=== PATIENT | female | born 2000 | race Two or more races ===

== ENCOUNTER 2023-06-03 10:35 | Emergency (ER) | payer MEDICAID, OTHER ==
[~2023-06-03] VITALS: Ht 167.6 cm; Wt 84.0 kg
[2023-06-03 10:37] VITALS: O2SAT 97
[2023-06-03 11:24] LABS: BASOPHILS % 0.7 % (0.0-2.0); EOSINOPHILS % 1.1 % (0.0-5.0); HEMATOCRIT. 36.8 % (36.0-48.0); HEMOGLOBIN. 12.4 g/dL (12.0-16.0); LYMPHOCYTES % 32.2 % (20.0-50.0); MEAN CORPUSCULAR HEMOGLOBIN 30.8 pg (28.0-32.0); MEAN CORPUSCULAR HGB CONC 33.6 g/dL (31.0-37.0); MEAN CORPUSCULAR VOLUME 91.5 fL (81.0-99.0); MONOCYTES % 5.5 % (2.0-8.0); NEUTROPHILS % 60.5 % (40.0-76.0); PLATELET 274 x1000/uL (130-400); RED BLOOD CELL COUNT 4.02 mill/uL (4.2-5.4); RED CELL DISTRIBUTION WIDTH 13.1 % (11.6-14.6); WHITE BLOOD COUNT 7.8 x1000/uL (4.5-11.0)
[2023-06-03 11:51] LABS: CLARITY URINE CLOUDY (CLEAR); COLOR URINE YELLOW (YELLOW); GLUCOSE URINE NEGATIVE (NEGATIVE); KETONES URINE TRACE (NEGATIVE); LEUKOCYTE ESTERASE URINE 1+ (NEGATIVE); NITRITE URINE NEGATIVE (NEGATIVE); OCCULT BLOOD URINE 3+ (NEGATIVE); PH URINE 7.5 (4.5-8.0); PROTEIN URINE 1+ (NEGATIVE); SPECIFIC GRAVITY URINE 1.028 (1.005-1.030)
[2023-06-03 11:55] LABS: ALANINE AMINOTRANSFERASE < 7 IU/L (10-49); ALBUMIN 4.2 g/dL (3.2-4.8); ASPARTATE AMINOTRANSFERASE 14 IU/L (<34); B-HCG QUANTITATIVE 36673 mIU/mL (<3); BILIRUBIN TOTAL 0.7 mg/dL (0.1-1.0); CALCIUM 8.9 mg/dL (8.7-10.4); CARBON DIOXIDE 26 mEq/L (21-32); CHLORIDE 106 mEq/L (98-107); CREATININE 0.6 mg/dL (0.6-1.0); GLUCOSE 90 mg/dL (70-105); POTASSIUM 4.4 mEq/L (3.5-5.1); PROTEIN TOTAL 6.8 g/dL (6.0-8.3); SODIUM 138 mEq/L (136-145); UREA NITROGEN BLOOD 6 mg/dL (9-23)
[2023-06-03 12:15] LABS: MUCUS URINE 3+ /lpf (< = 2+); SQUAMOUS EPITHELIAL CELL URINE 3+ /lpf (RARE/1+)
[2023-06-03 12:16] LABS: BACTERIA URINE 3+
[2023-06-03] MEDS ORDERED: CEPH500C2 MT (13:19)
[2023-06-03] MEDS ORDERED: PNV1TABL76 MT (13:57)
[2023-06-03 14:18] VITALS: BP 122/74; PULSE 66; RESP 19; TEMP 98.3
[2023-06-04] MEDS ORDERED: IBUP-2030 MT (12:59)
== END 2023-06-03 14:18 | disposition home or self-care (01) ==
LOC: ER 10:35
DX: O23.41 Unspecified infection of urinary tract in pregnancy, first trimester (principal); N39.0 Urinary tract infection, site not specified; Z3A.01 Less than 8 weeks gestation of pregnancy
CPT/HCPCS: 36415; 76801; 80053; 81003; 81025; 84702; 85025; 86850; 86900; 99284

== ENCOUNTER 2023-06-03 23:35 | Inpatient (IN) | payer MEDICAID, OTHER ==
[~2023-06-03] VITALS: Ht 170.2 cm; Wt 98.9 kg
[~2023-06-03 23:35] MED LIST: CEPH500C2 MT; PNV1TABL76 MT
[2023-06-04] MEDS ORDERED: ACETAMINOPHEN 325MG TABLET PO PRN
[2023-06-04 00:30] LABS: BASOPHILS % 0.2 % (0.0-2.0); EOSINOPHILS % 0.2 % (0.0-5.0); HEMOGLOBIN. 11.9 g/dL (12.0-16.0); MEAN CORPUSCULAR HEMOGLOBIN 30.7 pg (28.0-32.0); MEAN CORPUSCULAR HGB CONC 33.1 g/dL (31.0-37.0); MEAN CORPUSCULAR VOLUME 92.5 fL (81.0-99.0); MONOCYTES % 3.5 % (2.0-8.0); NEUTROPHILS % 81.1 % (40.0-76.0); PLATELET 285 x1000/uL (130-400); RED BLOOD CELL COUNT 3.89 mill/uL (4.2-5.4); RED CELL DISTRIBUTION WIDTH 12.9 % (11.6-14.6); WHITE BLOOD COUNT 14.8 x1000/uL (4.5-11.0)
[2023-06-04 00:54] LABS: ALANINE AMINOTRANSFERASE 7 IU/L (10-49); ALBUMIN 4.1 g/dL (3.2-4.8); ASPARTATE AMINOTRANSFERASE 15 IU/L (<34); B-HCG QUANTITATIVE 25997 mIU/mL (<3); BILIRUBIN TOTAL 0.5 mg/dL (0.1-1.0); CALCIUM 8.7 mg/dL (8.7-10.4); CARBON DIOXIDE 22 mEq/L (21-32); CHLORIDE 106 mEq/L (98-107); CREATININE 0.7 mg/dL (0.6-1.0); GLUCOSE 93 mg/dL (70-105); POTASSIUM 4.1 mEq/L (3.5-5.1); PROTEIN TOTAL 6.8 g/dL (6.0-8.3); SODIUM 137 mEq/L (136-145); UREA NITROGEN BLOOD 7 mg/dL (9-23)
[2023-06-04] MEDS: OXYTOCIN IV NR (05:30)
[2023-06-04] MEDS: SODIUM CHLORIDE 0.9% IV NR (05:30)
[2023-06-04 08:00] VITALS: BP 117/74; PULSE 66; RESP 19; TEMP 97.9
[2023-06-04] MEDS ORDERED: DEXT 5%/LR + PITOCIN 20UNITS/L 1,000 ML IV SCH (09:45)
[2023-06-04] MEDS ORDERED: OXYTOCIN 30 UNITS/500ML NS PMX 500 ML IV NR (10:30)
[2023-06-04] MEDS ORDERED: SODIUM CHLORIDE 0.9% IV NR (11:00)
[2023-06-04] MEDS ORDERED: OXYTOCIN IV NR (11:00)
[2023-06-04 12:00] VITALS: BP 107/73; PULSE 60; RESP 18; TEMP 97.9
[2023-06-04] MEDS ORDERED: PROPOFOL 200MG/20ML VIAL IV ONE (12:22)
[2023-06-04] MEDS ORDERED: MIDAZOLAM HCL 2 MG/2 ML VIAL ONE ×2 (12:24→12:54)
[2023-06-04] MEDS ORDERED: IBUP-2030 MT (12:59)
[2023-06-04] MEDS ORDERED: ONDANSETRON HCL 4MG/2ML INJ ONE (13:08)
[2023-06-04] MEDS ORDERED: OXYTOCIN 10 UNITS/ML 1ML ONE (13:08)
[2023-06-04] MEDS ORDERED: HYDROMORPHONE HCL/PF 2MG/ML CPJ IV PRN (13:15)
[2023-06-04] MEDS ORDERED: ONDANSETRON HCL 4MG/2ML INJ IV PRN (13:15)
[2023-06-04] MEDS ORDERED: MEPERIDINE HCL/PF 25MG/ML CPJ IV PRN (13:15)
[2023-06-04] MEDS ORDERED: FENTANYL CITRATE/PF 50MCG/ML 2ML VIAL IV PRN (13:15)
[2023-06-04 15:22] VITALS: BP 117/74; PULSE 63; RESP 18; TEMP 98.3
[2023-06-04 16:00] VITALS: BP 100/50; PULSE 62; RESP 17; TEMP 97.9
[2023-06-04 16:54] VITALS: BP 107/73; PULSE 60; TEMP 97.9; O2SAT 100
== END 2023-06-04 17:45 | disposition home or self-care (01) | DRG 543 ==
LOC: ER 23:35 → 6EST 06-04 03:14
PROVIDERS: ADMIT Obstetrics & Gynecology; ATTEND Obstetrics & Gynecology
PROC: 10D17ZZ Extraction of Products of Conception, Retained, Via Natural or Artificial Opening (ICD-10-PCS; principal; 2023-06-04)
DX: O03.4 Incomplete spontaneous abortion without complication (principal); Z3A.01 Less than 8 weeks gestation of pregnancy
CPT/HCPCS: 36415; 76801; 80053; 84702; 85025; 86850; 86900; 99285; J2250; J2405; J2704; J3010; J7040; J7120; J2590